=== PATIENT | male | born 1950 | race Caucasian/White ===

== ENCOUNTER 2020-11-04 02:05 | Inpatient (IN) | payer MEDICARE, OTHER ==
[~2020-11-04] VITALS: Ht 177.8 cm; Wt 79.8 kg
--- NOTE | 2020-11-04 02:10 | NUR ---
Pt bibra c/o sob and cp x1day. Pt breathing evenly and unlabored. Pt states his chest pain is "stabbing and doesnt go anywhere". Pt attached to monitor and pox. Emt at bedside for ekg. Pt given blanket and call light within reach
--- NOTE | 2020-11-04 03:08 | NUR ---
PATIENT'S BLOOD COLLECTED AND SENT TO THE LAB
[2020-11-04 03:33] LABS: BASOPHILS # (AUTO) 0.1 /CMM (0.0-0.2); BASOPHILS % (AUTO) 0.8 % (0.0-2.0); EOSINOPHILS % (AUTO) 1.6 % (0.0-6.0); HEMATOCRIT 38 % (39-51); HEMOGLOBIN 12.4 g/dL (13.5-17.5); LYMPHOCYTES # (AUTO) 2.3 /CMM (0.8-4.8); LYMPHOCYTES % (AUTO) 24.9 % (20.0-44.0); MEAN CORPUSCULAR HGB CONC 32 g/dl (31.0-36.0); MEAN CORPUSCULAR VOLUME 91 fL (80-96); MONOCYTES # (AUTO) 0.7 /CMM (0.1-1.30); MONOCYTES % (AUTO) 7.6 % (2.0-12.0); NEUTROPHILS # (AUTO) 6.1 /CMM (1.8-8.9); NEUTROPHILS % (AUTO) 65.1 % (43.0-81.0); PLATELET COUNT (AUTO) 277 /CMM (150-450); RED BLOOD CELL COUNT(AUTO) 4.19 MIL/uL (4.5-6.0); WHITE BLOOD COUNT (AUTO) 9.3 K/uL (4.3-11.0)
--- NOTE | 2020-11-04 03:49 | NUR ---
xray at bedside
[2020-11-04 04:08] LABS: D-DIMER 0.66 mg/L(FEU (0.17-0.50)
[2020-11-04 04:11] LABS: CALCIUM, SERUM 9.1 mg/dL (8.5-10.1); CREATININE 1.4 mg/dL (0.6-1.3); POTASSIUM 5.2 mmol/L (3.5-5.1)
--- NOTE | 2020-11-04 04:20 | NUR ---
per lab trop 5.238
[2020-11-04] MEDS ORDERED: ASPIRIN 325 MG TABLET ONE (04:24)
[2020-11-04 04:25] LABS: ALBUMIN 3.4 g/dL (3.4-5.0); BILIRUBIN,DIRECT 0.1 mg/dL (0.0-0.2); BILIRUBIN,TOTAL 0.4 mg/dL (0.2-1.0)
[2020-11-04] MEDS ORDERED: NITROGLYCERIN 0.4 MG/TAB BOTTLE SL ONE (04:30)
[2020-11-04] MEDS ORDERED: ASPIRIN 325 MG TABLET PO ONE (04:30)
--- NOTE | 2020-11-04 04:30 | NUR ---
nitrostat 0.4mg held. BP 97/49
[2020-11-04] MEDS ORDERED: HEPARIN INFUSION/D5W 500 ML IV ONE ×2 (04:36→05:00)
[2020-11-04] MEDS ORDERED: NITROGLYCERIN 0.4 MG/TAB BOTTLE ONE (04:37)
--- NOTE | 2020-11-04 04:50 | NUR ---
WARD () CONTACT INFORMATION: [phone]
[2020-11-04] MEDS ORDERED: HEPARIN SODIUM, PORCINE 5000 UNITS/1 ML VIAL ONE (04:55)
[2020-11-04] MEDS ORDERED: OLANZAPINE 10 MG VIAL IM ONE (05:00)
--- NOTE | 2020-11-04 05:15 | NUR ---
Heprin infusion started. Running at 1200units/hr. PTT redraw at 1115
--- NOTE | 2020-11-04 05:25 | NUR ---
Eliz () called and informed us that pt roll plugger machine operator is David Wallis at [address] [facility] [id number]
--- NOTE | 2020-11-04 05:27 | NUR ---
Eliz cell phone [phone]
--- NOTE | 2020-11-04 05:30 | NUR ---
RETURNED FROM CT
--- NOTE | 2020-11-04 05:40 | NUR ---
COVID SWABS SENT TO LAB
--- NOTE | 2020-11-04 07:15 | NUR ---
gave report to RICA Fenton for daniel
[2020-11-04] MEDS ORDERED: MAG HYDROX/AL HYDROX/SIMETH 30 ML UDC PO PRN (07:30)
[2020-11-04] MEDS ORDERED: ONDANSETRON HCL/PF 4 MG/2 ML VIAL IVP PRN (07:30)
[2020-11-04] MEDS ORDERED: ACETAMINOPHEN 325 MG TABLET PO PRN ×2 (07:30→08:30)
[2020-11-04] MEDS ORDERED: HEPARIN INFUSION/D5W 500 ML IV PRN (07:30)
[2020-11-04] MEDS ORDERED: NITROGLYCERIN 0.4 MG/TAB BOTTLE SL PRN (07:30)
--- NOTE | 2020-11-04 08:09 | NUR ---
received a call from the lab regarding covid result "negative".
[2020-11-04] MEDS ORDERED: ATOR40TA PO (08:13)
[2020-11-04] MEDS ORDERED: ASCO-352 PO (08:13)
[2020-11-04] MEDS ORDERED: CLOP75TA15 PO (08:13)
[2020-11-04] MEDS ORDERED: BUPR-54 PO (08:13)
[2020-11-04] MEDS ORDERED: ACET-868 PO (08:13)
[2020-11-04] MEDS ORDERED: MAGN400O6 PO (08:13)
[2020-11-04] MEDS ORDERED: ASPI-1420 PO (08:13)
[2020-11-04] MEDS ORDERED: CHOL100062 PO (08:13)
[2020-11-04] MEDS ORDERED: BISA10SU11 RC (08:13)
[2020-11-04] MEDS ORDERED: SITA50TA PO (08:13)
[2020-11-04] MEDS ORDERED: CARV3.122 PO (08:13)
[2020-11-04] MEDS ORDERED: METF-440 PO (08:13)
[2020-11-04] MEDS ORDERED: ZINC1CAP3 PO (08:13)
[2020-11-04] MEDS ORDERED: QUET25TA PO (08:13)
[2020-11-04] MEDS ORDERED: LISI2.5T2 PO (08:13)
[2020-11-04] MEDS ORDERED: GLUC1KIT IM (08:13)
[2020-11-04] MEDS ORDERED: PSYL3.4P6 PO (08:13)
[2020-11-04] MEDS ORDERED: INSU100V3 SQ (08:13)
[2020-11-04] MEDS ORDERED: MULT-24 PO (08:13)
[2020-11-04] MEDS ORDERED: DOCU250C14 PO (08:13)
[2020-11-04] MEDS ORDERED: PANT40TA2 PO (08:13)
[2020-11-04] MEDS ORDERED: DIVA125C2 PO (08:13)
--- NOTE | 2020-11-04 08:17 | NUR ---
PATIENT PULLED OUT PERIPHERAL IV LINE. RE-INSERTED ANOTHER LINE ON RIGHT HAND G20 IV.
--- NOTE | 2020-11-04 08:26 | NUR ---
BED 101 TELE
[2020-11-04] MEDS ORDERED: PANTOPRAZOLE 40 MG TABLET.DR PO SCH (08:30)
[2020-11-04] MEDS ORDERED: BISACODYL SUPP (10 MG) 10 MG/SUPP.RECT SUPP.RECT RC PRN (08:30)
[2020-11-04] MEDS ORDERED: FUROSEMIDE 20 MG/2 ML VIAL IV ONE (08:30)
[2020-11-04] MEDS ORDERED: MAGNESIUM HYDROXIDE 30 ML UDC PO PRN (08:30)
--- NOTE | 2020-11-04 08:56 | NUR ---
HEPARIN STOPPED AT THIS TIME
--- NOTE | 2020-11-04 08:56 | NUR ---
REPORT GIVEN TO SOON RN FOR SOHAIL.
[2020-11-04] MEDS: LISINOPRIL (5MG) 5 MG TABLET PO SCH (09:00)
[2020-11-04] MEDS: CARVEDILOL 3.125 MG TABLET PO SCH ×2 (09:00→17:00)
--- NOTE | 2020-11-04 09:00 | NUR ---
DR. BRIONES AT BEDSIDE FOR EVAL.
--- NOTE | 2020-11-04 09:20 | NUR ---
RN NOTE PT TRANSFERRED TO ROOM 101, STABLE CONDITION. BEDSIDE REPORT GIVEN FROM ER NURSE. PT A/Ox1-2. PT BREATHING RA SPO2 99%. PT HAS RT HAND IV ACCESS SL, FLUSHED, AND PATENT, NO SIGNS OF INFECTION/INFILTRATION. PT SKIN IS INTACT, BLE SCABS NOTED, BILAT FEET ARE DRY, NO ULCERS NOTED. PT STATES CHEST PAIN 11/22, WILL ADMIN MEDS ORDERED. ALL PT SAFETY PRECAUTIONS IN PLACE. WILL CONT TO MONITOR Addendum: 11/04/20 at 1001 by JOHN PHAM RN 0930 VITALS: BP 95/66, HR 89, RR 22, SPO2 99%, RR 22
--- NOTE | 2020-11-04 09:22 | NUR ---
PATIENT TRANSFERRED TO ROOM 101 VIA ACLS PROTOCOL. PATIENT A/OX3, BREATHING EVEN AND UNLABORED, ENDORSED TO BOB, GAVE BEDSIDE REPORT.
[2020-11-04 10:00] VITALS: BP 95/66
[2020-11-04 10:01] VITALS: BP 95/66
[2020-11-04] MEDS: CHOLECALCIFEROL 1,000 UNIT TABLET (VIT D3) PO SCH (10:35)
[2020-11-04] MEDS: ZINC SULFATE 220 MG CAPSULE PO SCH (10:35)
[2020-11-04] MEDS: BUPROPION XL 150 MG TAB.ER.24 PO SCH (10:36)
[2020-11-04] MEDS: DOCUSATE SODIUM 250 MG CAPSULE PO SCH (10:36)
[2020-11-04] MEDS: ASPIRIN EC 81 MG TABLET.DR PO SCH (10:36)
[2020-11-04] MEDS: LINAGLIPTIN 5 MG TABLET PO SCH (10:36)
[2020-11-04] MEDS: DIVALPROEX SODIUM 125 MG CAP.SPRINK PO SCH ×3 (10:36→16:23)
[2020-11-04] MEDS: MULTIVITAMINS,THERAGRAN 1 UDTAB TABLET PO SCH (10:37)
[2020-11-04] MEDS: ASCORBIC ACID 500 MG TABLET PO SCH (10:37)
[2020-11-04] MEDS: PSYLLIUM SEED 1 PKT PACKET PO SCH ×2 (10:38→17:00)
[2020-11-04] MEDS: CLOPIDOGREL BISULFATE 75 MG TABLET PO SCH (10:38)
[2020-11-04] MEDS: PANTOPRAZOLE 40 MG TABLET.DR PO SCH (10:38)
[2020-11-04] MEDS: ENOXAPARIN SODIUM 80 MG/0.8 ML DISP.SYRIN SQ SCH ×2 (10:39→21:03)
--- NOTE | 2020-11-04 10:45 | NUR ---
RN NOTE DR BRIONES AWARE OF PT CHEST PAIN 09/22, PT HAS LOW BP, NOT TO GIVE NITRO FOR THE TIME BEING. WILL CONT TO MONITOR PT
--- NOTE | 2020-11-04 10:49 | NUR ---
RN NOTE PER DR BRIONES AND DR BECK, OK TO HOLD LISINOPRIL AND CARVEDILOL, PT BP 95/66, HR IN 80s
[2020-11-04 12:00] VITALS: BP 121/75
[2020-11-04] MEDS ORDERED: DEXTROSE 50%-WATER 50 ML DISP.SYRIN IV PRN (12:30)
[2020-11-04] MEDS: BLOOD SUGAR DIAGNOSTIC 1 EACH STRIP IN SCH ×3 (12:44→21:15)
[2020-11-04 16:00] VITALS: BP 98/68
[2020-11-04] MEDS: INSULIN REGULAR, HUMAN 100 UNIT/ML 3 ML VIAL SQ PRN ×2 (18:08→21:16)
--- NOTE | 2020-11-04 19:10 | NUR ---
RN CLOSING NOTE PT RESTING COMFORTABLY, NO COMPLAINTS OF CHEST PAIN, MAALOX GIVEN EARLIER FOR HEARTBURN. PT ON NC 2L SPO2 96%, NO SIGNS OF RESP DISTRESS OR SOB. MONITOR TROP IN AM. ALL PT SAFETY PRECAUTIONS IN PLACE, SOHAIL ENDORSED TO RESIDENTIAL ASSISTANT RN
--- NOTE | 2020-11-04 19:34 | NUR ---
KILN FEEDER NOTES PT RECEIVED ALERT ORIENTED X1-2 PT IN BED RESTING COMFORTABLY ON 2L VIA NASAL CANNULA TOLERATING WELL. IV ACCESS ONT HE RIGHT HAND 20 G SALINE LOCKED PATENT FLUSHING WELL. NO SWELLING OR REDNESS NOTED AT SITE. NO RESPIRATORY DISTRESS NO PAIN OR DISCOMFORT NOTED OR REPORTED AT THIS TIME SAFETY PRECAUTIONS FOLLOWED AT ALL TIMES. CALL LIGHT WITHIN REACH. WILL CONTINUE TO MONITOR.
[2020-11-04 20:00] VITALS: BP 116/78
[2020-11-04] MEDS: QUETIAPINE FUMARATE 25 MG TABLET PO SCH (21:02)
[2020-11-04] MEDS: ATORVASTATIN 40 MG TABLET PO SCH (21:02)
--- NOTE | 2020-11-04 22:45 | NUR ---
EMERGENCY MAN NOTES PT CALLED TO RECEIVE INFORMATION ABOUT PT NURSE IN ROOM WITH PT ONCE AVAILABLE TRIED CALLING BACK DID NOT [employer] PUMP TENDER CALL LEFT A MESSAGE WILL TRY TO CALL BACK AGAIN LATER.
[2020-11-05 00:34] VITALS: BP 107/73
[2020-11-05 04:20] VITALS: BP 104/75
[2020-11-05 06:10] LABS: BASOPHILS # (AUTO) 0.1 /CMM (0.0-0.2); BASOPHILS % (AUTO) 0.7 % (0.0-2.0); EOSINOPHILS % (AUTO) 0.6 % (0.0-6.0); HEMATOCRIT 38 % (39-51); HEMOGLOBIN 12.6 g/dL (13.5-17.5); LYMPHOCYTES # (AUTO) 2.1 /CMM (0.8-4.8); LYMPHOCYTES % (AUTO) 24.9 % (20.0-44.0); MEAN CORPUSCULAR HGB CONC 33 g/dl (31.0-36.0); MEAN CORPUSCULAR VOLUME 90 fL (80-96); MONOCYTES # (AUTO) 0.7 /CMM (0.1-1.30); MONOCYTES % (AUTO) 8.9 % (2.0-12.0); NEUTROPHILS # (AUTO) 5.3 /CMM (1.8-8.9); NEUTROPHILS % (AUTO) 64.9 % (43.0-81.0); PLATELET COUNT (AUTO) 290 /CMM (150-450); RED BLOOD CELL COUNT(AUTO) 4.23 MIL/uL (4.5-6.0); WHITE BLOOD COUNT (AUTO) 8.2 K/uL (4.3-11.0)
--- NOTE | 2020-11-05 06:48 | NUR ---
ARTIST'S MODEL NOTES PT RECEIVED ALERT ORIENTED X1-2 PT IN BED RESTING COMFORTABLY ON 2L VIA NASAL CANNULA TOLERATING WELL. IV ACCESS ONT THE RIGHT HAND 20 G SALINE LOCKED PATENT FLUSHING WELL. NO SWELLING OR REDNESS NOTED AT SITE. NO RESPIRATORY DISTRESS NO PAIN OR DISCOMFORT NOTED OR REPORTED AT THIS TIME SAFETY PRECAUTIONS FOLLOWED AT ALL TIMES. ALL DUE MEDS GIVEN AND TOLERATED WELL.CALL LIGHT WITHIN REACH. WILL ENDORSE CARE TO DAYS SHIFT NURSE.
[2020-11-05 06:57] LABS: ALBUMIN 3.4 g/dL (3.4-5.0); BILIRUBIN,TOTAL 0.7 mg/dL (0.2-1.0); CALCIUM, SERUM 9.2 mg/dL (8.5-10.1); CREATININE 1.4 mg/dL (0.6-1.3); MAGNESIUM 2.1 mg/dL (1.8-2.4); PHOSPHORUS 4.5 mg/dL (2.5-4.9); POTASSIUM 4.6 mmol/L (3.5-5.1); TOTAL PROTEIN, SERUM 7.2 g/dL (6.4-8.2)
--- NOTE | 2020-11-05 07:06 | NUR ---
DIGITAL AD TRAFFICKER NOTES RECEIVED CRITICAL LAB RESULTS TROPONIN 3.195 TROPONIN TRENDING DOWN FROM PREVIOUS RESULTS. WILL INFORM MD and WILL ENDORSE TO DAY SHIFT NURSE
--- NOTE | 2020-11-05 07:10 | NUR ---
RN OPENING NOTES PT RECEIVED RESTING IN SEMI-FOWLERS POSITION. PATIENT A&OX1-2. PT ON O2 THERAPY VIA NC AT 2 LPM TOLERATING WELL. RIGHT HAND #20 G IV ACCESS INTACT AND PATENT. NO SWELLING OR REDNESS NOTED AT SITE. NO RESPIRATORY DISTRESS NO PAIN OR DISCOMFORT NOTED OR REPORTED AT THIS TIME. SAFETY PRECAUTIONS IMPLEMENTED, BED LOCKED IN LOWEST POSITION, SIDE RAILS UP X2, CALL LIGHT WITHIN REACH. WILL CONTINUE TO MONITOR AND PROVIDE CARE THROUGHOUT SHIFT.
[2020-11-05 08:00] VITALS: BP 127/84
[2020-11-05] MEDS: BLOOD SUGAR DIAGNOSTIC 1 EACH STRIP IN SCH ×4 (08:08→22:18)
[2020-11-05] MEDS: PANTOPRAZOLE 40 MG TABLET.DR PO SCH (08:24)
[2020-11-05] MEDS: DOCUSATE SODIUM 250 MG CAPSULE PO SCH (08:24)
[2020-11-05] MEDS: ASPIRIN EC 81 MG TABLET.DR PO SCH (08:24)
[2020-11-05] MEDS: DIVALPROEX SODIUM 125 MG CAP.SPRINK PO SCH ×3 (08:24→17:15)
[2020-11-05] MEDS: CLOPIDOGREL BISULFATE 75 MG TABLET PO SCH (08:25)
[2020-11-05] MEDS: LINAGLIPTIN 5 MG TABLET PO SCH (08:25)
[2020-11-05] MEDS: PSYLLIUM SEED 1 PKT PACKET PO SCH ×2 (08:25→17:15)
[2020-11-05] MEDS: MULTIVITAMINS,THERAGRAN 1 UDTAB TABLET PO SCH (08:25)
[2020-11-05] MEDS: ASCORBIC ACID 500 MG TABLET PO SCH (08:26)
[2020-11-05] MEDS: CHOLECALCIFEROL 1,000 UNIT TABLET (VIT D3) PO SCH (08:27)
[2020-11-05] MEDS: ZINC SULFATE 220 MG CAPSULE PO SCH (08:40)
[2020-11-05] MEDS: BUPROPION XL 150 MG TAB.ER.24 PO SCH (08:40)
[2020-11-05] MEDS: ENOXAPARIN SODIUM 80 MG/0.8 ML DISP.SYRIN SQ SCH ×2 (08:42→22:19)
[2020-11-05] MEDS: INSULIN REGULAR, HUMAN 100 UNIT/ML 3 ML VIAL SQ PRN ×3 (08:47→22:24)
[2020-11-05] MEDS: CARVEDILOL 3.125 MG TABLET PO SCH ×2 (08:47→17:00)
[2020-11-05] MEDS: LISINOPRIL (5MG) 5 MG TABLET PO SCH (08:48)
--- NOTE | 2020-11-05 11:00 | NUR ---
PT IN THE BATHROOM. WILL CHECK BACK LATER.
[2020-11-05 12:00] VITALS: BP 83/62
[2020-11-05 16:00] VITALS: BP 92/50
--- NOTE | 2020-11-05 19:43 | NUR ---
RN OPENING NOTES PT RESTING IN SEMI-FOWLERS POSITION. PATIENT A&OX1-2. PT ON O2 THERAPY VIA NC AT 2 LPM TOLERATING WELL. RIGHT HAND #20 G IV ACCESS INTACT AND PATENT. NO SWELLING OR REDNESS NOTED AT SITE. NO RESPIRATORY DISTRESS NO PAIN OR DISCOMFORT NOTED OR REPORTED AT THIS TIME. SAFETY PRECAUTIONS IMPLEMENTED, BED LOCKED IN LOWEST POSITION, SIDE RAILS UP X2, CALL LIGHT WITHIN REACH. WILL ENDORSE CARE TO UPCOMING SHIFT.
--- NOTE | 2020-11-05 19:45 | NUR ---
RN NOTE RECEIVED PT IN BED SLEEPING, AROUSES EASILY. VERBALLY RESPONSIVE. ON O2 THERAPY AT 2L VIA NC. NO DISTRESS NOTED. PT DENIES ANY SOB. DENIES PAIN AT THIS TIME. SR WITH 1ST DEGREE AV BLOCK ON TELE MONITOR. IV ON R HAND PATENT AND INTACT. WILL CONTINUE TO MONITOR. ALL SAFETY MEASURES IMPLEMENTED PER PROTOCOL. CALL LIGHT WITHIN REACH.
[2020-11-05 20:00] VITALS: BP 89/52
[2020-11-05] MEDS: QUETIAPINE FUMARATE 25 MG TABLET PO SCH (22:18)
[2020-11-05] MEDS: ATORVASTATIN 40 MG TABLET PO SCH (22:18)
[2020-11-06] VITALS: BP 90/70
--- NOTE | 2020-11-06 01:20 | NUR ---
RN NOTE PT COMPLAINED OF ON AND OFF CHEST DISCOMFORT, LASTING SECONDS TO A MINUTE. DENIES ANY RADIATING PAIN. UNABLE TO DESCRIBE PAIN. BP 107/53. P 89. DENIES SOB. NO NITROGLYCERIN GIVEN PTS BP LOW AND PAIN GOES AWAY IN A MINUTE. WILL CONTINUE TO MONITOR.
[2020-11-06 04:00] VITALS: BP 107/77
[2020-11-06 06:41] LABS: BASOPHILS % (AUTO) 0.5 % (0.0-2.0); EOSINOPHILS % (AUTO) 0.4 % (0.0-6.0); HEMATOCRIT 38 % (39-51); HEMOGLOBIN 12.4 g/dL (13.5-17.5); LYMPHOCYTES # (AUTO) 2.1 /CMM (0.8-4.8); LYMPHOCYTES % (AUTO) 25.4 % (20.0-44.0); MEAN CORPUSCULAR HGB CONC 33 g/dl (31.0-36.0); MEAN CORPUSCULAR VOLUME 90 fL (80-96); MONOCYTES # (AUTO) 1.1 /CMM (0.1-1.30); MONOCYTES % (AUTO) 13.1 % (2.0-12.0); NEUTROPHILS % (AUTO) 60.6 % (43.0-81.0); PLATELET COUNT (AUTO) 291 /CMM (150-450); RED BLOOD CELL COUNT(AUTO) 4.22 MIL/uL (4.5-6.0); WHITE BLOOD COUNT (AUTO) 8.2 K/uL (4.3-11.0)
[2020-11-06 06:55] LABS: ALBUMIN 3.5 g/dL (3.4-5.0); BILIRUBIN,TOTAL 0.7 mg/dL (0.2-1.0); CALCIUM, SERUM 8.7 mg/dL (8.5-10.1); CREATININE 1.5 mg/dL (0.6-1.3); MAGNESIUM 2.2 mg/dL (1.8-2.4); POTASSIUM 4.9 mmol/L (3.5-5.1)
--- NOTE | 2020-11-06 07:00 | NUR ---
RN NOTE PT VS STABLE. NO PAIN NO DISTRESS NOTED. ALL NEEDS ATTENDED. WILL ENDORSED TO NEXT SHIFT NURSE FOR SOHAIL
--- NOTE | 2020-11-06 07:30 | NUR ---
RN OPENING NOTES PATIENT PRESENT IN BED, A/OX2, ON NC ON 2L, TOLERATING WELL, SPO2 99%, SR WITH PVC ON TELE-MONITOR, IV LINE INTACT AND PATNT, FLUSHED, ABLE TO AMBULATE, URINAL AT BED SITE, CARDIC DIET NOTED, BED LOCKED IN LOWEST POSIITON, CALL LIGHT IN REACH, WILL CONT TO MONITOR
[2020-11-06 07:31] LABS: BILIRUBIN,URINE NEGATIVE (NEGATIVE); COLOR,URINE ORANGE (YELLOW); LEUKOCYTE ESTERASE ,URINE NEGATIVE (NEGATIVE); NITRITE, URINE NEGATIVE (NEGATIVE); PROTEIN,URINE TRACE mg/dl (NEGATIVE); UGLUCOSE NEGATIVE (NEGATIVE); UROBILINOGEN,URINE 0.2 EU/dL (0.2)
[2020-11-06 07:37] LABS: CREATININE, URINE 196.8 MG/DL (30.0-125.0)
[2020-11-06 07:49] LABS: BACTERIA,URINE Rare /HPF (None Seen); RBC,URINE F /HPF (0-2); SQUAMOUS EPITHELIAL CELL,UR Rare /HPF (None Seen); WBC,URINE F /HPF (0-3)
[2020-11-06 08:00] VITALS: BP 107/77
[2020-11-06] MEDS: BLOOD SUGAR DIAGNOSTIC 1 EACH STRIP IN SCH ×4 (08:17→21:42)
[2020-11-06 08:27] LABS: EOSINOPHIL,URINE None Seen
[2020-11-06] MEDS: DOCUSATE SODIUM 250 MG CAPSULE PO SCH (08:47)
[2020-11-06] MEDS: PANTOPRAZOLE 40 MG TABLET.DR PO SCH (08:47)
[2020-11-06] MEDS: MULTIVITAMINS,THERAGRAN 1 UDTAB TABLET PO SCH (08:47)
[2020-11-06] MEDS: BUPROPION XL 150 MG TAB.ER.24 PO SCH (08:47)
[2020-11-06] MEDS: CARVEDILOL 3.125 MG TABLET PO SCH ×2 (08:48→17:00)
[2020-11-06] MEDS: LISINOPRIL (5MG) 5 MG TABLET PO SCH (08:48)
[2020-11-06] MEDS: DIVALPROEX SODIUM 125 MG CAP.SPRINK PO SCH ×3 (08:49→17:08)
[2020-11-06] MEDS: ASCORBIC ACID 500 MG TABLET PO SCH (08:49)
[2020-11-06] MEDS: CLOPIDOGREL BISULFATE 75 MG TABLET PO SCH (08:49)
[2020-11-06] MEDS: ASPIRIN EC 81 MG TABLET.DR PO SCH (08:49)
[2020-11-06] MEDS: ZINC SULFATE 220 MG CAPSULE PO SCH (08:49)
[2020-11-06] MEDS: LINAGLIPTIN 5 MG TABLET PO SCH (08:49)
[2020-11-06] MEDS: CHOLECALCIFEROL 1,000 UNIT TABLET (VIT D3) PO SCH (08:49)
[2020-11-06] MEDS: PSYLLIUM SEED 1 PKT PACKET PO SCH ×2 (08:50→17:08)
[2020-11-06] MEDS: INSULIN REGULAR, HUMAN 100 UNIT/ML 3 ML VIAL SQ PRN ×3 (08:54→18:08)
[2020-11-06] MEDS: FUROSEMIDE 40 MG TABLET PO SCH (13:48)
[2020-11-06 16:00] VITALS: BP 90/53
--- NOTE | 2020-11-06 18:40 | NUR ---
RN CLOSING NOTES PATIENT REMAINS IN A ROOM, COOPERATIVE BEHAVIOR, DENIES PAIN OR DISCOMFORT, MEDICATIONS GIVEN, COMPLAINED WITH TREATMENT AND VERBALIZED UNDERSTANDING, HOWEVER POOR FOOD INTAKE DURING DAY, ASKED MULTIPLE TIMES ABOUT FOOD PREFERENCES, PATENT JUST STATED " I AM NOT HUNGRY" , SAFETY MEASURES IMPLEMENTED, WILL ENDORSE TO PM SHIFT RN FOR SOHAIL
[2020-11-06 20:00] VITALS: BP 101/74
--- NOTE | 2020-11-06 20:00 | NUR ---
MS RN NOTE PT IN BED AWAKE. A/O X 1-2, CONFUSED AT TIMES. NO DISTRESS OR DISCOMFORT NOTED. NO SOB NOTED. DENIES PAIN. ON O2 2L VIA NC O2 SAT 96%. ALL NEEDS ATTENDED. SIDE RAILS UP X 2 AND CALL LIGHT WITHIN REACH. VSS. CONTINUE TO MONITOR HIM.
[2020-11-06] MEDS: QUETIAPINE FUMARATE 25 MG TABLET PO SCH (21:42)
[2020-11-07 04:00] VITALS: BP 94/59
[2020-11-07 06:03] LABS: BASOPHILS % (AUTO) 0.4 % (0.0-2.0); HEMATOCRIT 37 % (39-51); HEMOGLOBIN 12.1 g/dL (13.5-17.5); LYMPHOCYTES # (AUTO) 2.1 /CMM (0.8-4.8); LYMPHOCYTES % (AUTO) 23.3 % (20.0-44.0); MEAN CORPUSCULAR HGB CONC 33 g/dl (31.0-36.0); MEAN CORPUSCULAR VOLUME 90 fL (80-96); MONOCYTES # (AUTO) 1.2 /CMM (0.1-1.30); MONOCYTES % (AUTO) 12.9 % (2.0-12.0); NEUTROPHILS # (AUTO) 5.7 /CMM (1.8-8.9); NEUTROPHILS % (AUTO) 62.4 % (43.0-81.0); PLATELET COUNT (AUTO) 240 /CMM (150-450); RED BLOOD CELL COUNT(AUTO) 4.08 MIL/uL (4.5-6.0); WHITE BLOOD COUNT (AUTO) 9.2 K/uL (4.3-11.0)
[2020-11-07 06:05] LABS: ALBUMIN 3.2 g/dL (3.4-5.0); BILIRUBIN,TOTAL 0.6 mg/dL (0.2-1.0); CALCIUM, SERUM 8.6 mg/dL (8.5-10.1); CREATININE 1.4 mg/dL (0.6-1.3); MAGNESIUM 2.2 mg/dL (1.8-2.4); PHOSPHORUS 4.5 mg/dL (2.5-4.9); POTASSIUM 4.7 mmol/L (3.5-5.1); TOTAL PROTEIN, SERUM 6.6 g/dL (6.4-8.2)
--- NOTE | 2020-11-07 06:29 | NUR ---
MS RN NOTE PT IN BED ASLEEP, AROUSABLE. NO DISTSRESS OR DISCOMFORT NOTED. NO S/S OF PAIN NOTED. SL RT HAND #20 G INTACT AND PATENT. SIDE RAILS UP X 2 AND CALL LIGHT WITHIN REACH. VSS. WILL ENDORSE TO DAY SHIFT NURSE FOR CONTINUE TO CARE.
[2020-11-07 07:07] LABS: PTH, INTACT 66 pg/mL (15-65)
[2020-11-07] MEDS: PANTOPRAZOLE 40 MG TABLET.DR PO SCH (07:30)
--- NOTE | 2020-11-07 07:30 | NUR ---
RN OPENING NOTES PATIENT PRESENT IN BED, A/OX1, ON NC ON 2L, TOLERATING WELL, SPO2 99%, MED SURG STATUS ; IV LINE AND PATENT, FLUSHED, ABLE TO AMBULATE, URINAL AT BED SITE, CARDIAC DIET NOTED, BED LOCKED IN LOWEST POSITION, CALL LIGHT IN REACH, WILL CONT TO MONITOR
[2020-11-07] MEDS: BLOOD SUGAR DIAGNOSTIC 1 EACH STRIP IN SCH ×2 (07:39→12:13)
[2020-11-07] MEDS: INSULIN REGULAR, HUMAN 100 UNIT/ML 3 ML VIAL SQ PRN ×3 (07:45→12:25)
[2020-11-07 08:00] VITALS: BP 89/61
[2020-11-07 09:00] VITALS: BP 89/61
[2020-11-07] MEDS: CARVEDILOL 3.125 MG TABLET PO SCH (09:00)
[2020-11-07] MEDS: LISINOPRIL (5MG) 5 MG TABLET PO SCH (09:00)
[2020-11-07] MEDS: MULTIVITAMINS,THERAGRAN 1 UDTAB TABLET PO SCH (09:16)
[2020-11-07] MEDS: CHOLECALCIFEROL 1,000 UNIT TABLET (VIT D3) PO SCH (09:16)
[2020-11-07] MEDS: ASCORBIC ACID 500 MG TABLET PO SCH (09:16)
[2020-11-07] MEDS: ZINC SULFATE 220 MG CAPSULE PO SCH (09:16)
[2020-11-07] MEDS: PSYLLIUM SEED 1 PKT PACKET PO SCH (09:16)
[2020-11-07] MEDS: LINAGLIPTIN 5 MG TABLET PO SCH (09:17)
[2020-11-07] MEDS: BUPROPION XL 150 MG TAB.ER.24 PO SCH (09:17)
[2020-11-07] MEDS: DOCUSATE SODIUM 250 MG CAPSULE PO SCH (09:17)
[2020-11-07] MEDS: FUROSEMIDE 40 MG TABLET PO SCH (09:17)
[2020-11-07] MEDS: CLOPIDOGREL BISULFATE 75 MG TABLET PO SCH (09:17)
[2020-11-07] MEDS: DIVALPROEX SODIUM 125 MG CAP.SPRINK PO SCH ×2 (09:17→13:16)
[2020-11-07] MEDS: ASPIRIN EC 81 MG TABLET.DR PO SCH (09:17)
[2020-11-07] MEDS ORDERED: GLUCERNA SHAKE 237 ML CAN PO SCH (09:30)
[2020-11-07] MEDS ORDERED: NUT.237L45 PO (10:46)
[2020-11-07] MEDS ORDERED: PANT40TA2 PO (10:46)
[2020-11-07] MEDS ORDERED: Nitroglycerin SL (10:46)
[2020-11-07] MEDS ORDERED: FURO40TA5 PO (10:46)
--- NOTE | 2020-11-07 13:37 | NUR ---
RN OPENING NOTES PATIENT PRESENT IN BED, A/OX1, ON NC ON 2L, TOLERATING WELL, SPO2 99%, MED SURG STATUS ; IV LINE AND PATENT, FLUSHED, ABLE TO AMBULATE, URINAL AT BED SITE, CARDIAC DIET NOTED, BED LOCKED IN LOWEST POSITION, CALL LIGHT IN REACH, WILL CONT TO MONITOR Addendum: 11/07/20 at 1338 by Francy Leal RN WRONG TIME
--- NOTE | 2020-11-07 13:38 | NUR ---
REPORT GIVEN TO BUDDY STRAUSS AT [facility], PATIENT CLEAN, DRESSES IN CLEAN GOWN, DISCHARGE PAPERWORK PROVIDED, AWAITING FOR AMBULANCE
--- NOTE | 2020-11-07 14:30 | NUR ---
discharge notes Ambulance at bed site ([facility], unit#[id number]), Patient name confirmed, destination confirmed, report given, DC paperwork provided, ID band and IV removed
[2020-11-08 05:07] LABS: *SPE A/G RATIO 1.2 (0.7-1.7); *SPE ALBUMIN 3.6 g/dL (2.9-4.4); *SPE ALPHA-1-GLOBULIN 0.2 g/dL (0.0-0.4); *SPE ALPHA-2-GLOBULIN 0.7 g/dL (0.4-1.0); *SPE BETA GLOBULIN 0.8 g/dL (0.7-1.3); *SPE GLOBULIN, TOTAL 2.9 g/dL (2.2-3.9); *SPE M-SPIKE Not Observed g/dL (Not Observed); *SPEGAMMA GLOBULIN 1.2 g/dL (0.4-1.8)
== END 2020-11-07 16:23 | DRG 280 ==
LOC: ER 02:07 → TRANSITION 07:20 → TELE-TD 08:24 → TELE1 15:01 → MEDSG1 11-06 08:37
PROVIDERS: ADMIT Family Medicine; ATTEND Nurse Practitioner Acute Care
DX: I21.A1 Myocardial infarction type 2 (principal); N17.0 Acute kidney failure with tubular necrosis; I50.22 Chronic systolic (congestive) heart failure; I13.0 Hypertensive heart and chronic kidney disease with heart failure and stage 1 through stage 4 chronic kidney disease, or unspecified chronic kidney disease; E87.1 Hypo-osmolality and hyponatremia; I42.9 Cardiomyopathy, unspecified; J90 Pleural effusion, not elsewhere classified; E11.65 Type 2 diabetes mellitus with hyperglycemia; E11.22 Type 2 diabetes mellitus with diabetic chronic kidney disease; N18.9 Chronic kidney disease, unspecified; Z20.822 Contact with and (suspected) exposure to COVID-19; J44.9 Chronic obstructive pulmonary disease, unspecified; Z90.49 Acquired absence of other specified parts of digestive tract; Z98.890 Other specified postprocedural states; E87.5 Hyperkalemia; Z83.3 Family history of diabetes mellitus; Z82.3 Family history of stroke; Z95.810 Presence of automatic (implantable) cardiac defibrillator; Z87.891 Personal history of nicotine dependence; E78.5 Hyperlipidemia, unspecified; Z82.49 Family history of ischemic heart disease and other diseases of the circulatory system; Z79.02 Long term (current) use of antithrombotics/antiplatelets; Z79.899 Other long term (current) drug therapy; Z79.4 Long term (current) use of insulin; Z79.82 Long term (current) use of aspirin; D63.8 Anemia in other chronic diseases classified elsewhere; D50.9 Iron deficiency anemia, unspecified; R91.8 Other nonspecific abnormal finding of lung field; E86.9 Volume depletion, unspecified
CPT/HCPCS: 36415; 71045-TC; 76705-TC; 76770-TC; 80048-TC; 80053-TC; 80061-TC; 80076-TC; 81001; 82550-TC; 82570-TC; 82962-TC; 83735-TC; 83970; 84100-TC; 84155; 84155-TC; 84165; 84300-TC; 84484-TC; 85025-TC; 85378-TC; 85730-TC; 87081-TC; 93307-TC; G0378; J1644; J1650; J1815; J1940; J2405; U0003

== ENCOUNTER 2020-11-08 13:10 | Emergency (ER) | payer MEDICARE, OTHER ==
[~2020-11-08] VITALS: Ht 175.3 cm; Wt 82.1 kg
[~2020-11-08 13:10] MED LIST: ACET-868 PO; ASCO-352 PO; ASPI-1420 PO; BISA10SU11 RC; BUPR-54 PO; CARV3.122 PO; CHOL100062 PO; CLOP75TA15 PO; DIVA125C2 PO; DOCU250C14 PO; FURO40TA5 PO; GLUC1KIT IM; INSU100V3 SQ; LISI2.5T2 PO; MAGN400O6 PO; MULT-24 PO; NUT.237L45 PO; Nitroglycerin SL; PANT40TA2 PO; PSYL3.4P6 PO; QUET25TA PO; SITA50TA PO; ZINC1CAP3 PO
[2020-11-08] MEDS ORDERED: ASPIRIN 325 MG TABLET PO ONE (13:30)
[2020-11-08 13:40] LABS: BASOPHILS # (AUTO) 0.1 /CMM (0.0-0.2); BASOPHILS % (AUTO) 0.6 % (0.0-2.0); EOSINOPHILS % (AUTO) 0.2 % (0.0-6.0); HEMATOCRIT 39 % (39-51); HEMOGLOBIN 12.5 g/dL (13.5-17.5); LYMPHOCYTES # (AUTO) 1.5 /CMM (0.8-4.8); MEAN CORPUSCULAR HGB CONC 32 g/dl (31.0-36.0); MEAN CORPUSCULAR VOLUME 91 fL (80-96); MONOCYTES # (AUTO) 1.2 /CMM (0.1-1.30); NEUTROPHILS # (AUTO) 5.5 /CMM (1.8-8.9); NEUTROPHILS % (AUTO) 66.2 % (43.0-81.0); PLATELET COUNT (AUTO) 211 /CMM (150-450); RED BLOOD CELL COUNT(AUTO) 4.24 MIL/uL (4.5-6.0); WHITE BLOOD COUNT (AUTO) 8.3 K/uL (4.3-11.0)
--- NOTE | 2020-11-08 13:42 | NUR ---
BIBRA FROM SNF TO ER BED 7. LETHARGIC. ARROUSABLE. IN MOD RESP DISTRESS, TACHYPNEIC W/ RETRACTION SATTING @ 86% ON RA. PLACED ON O2 VIA NC @ 6LPM sATTING @ 96-98%. BROUGHT ON FOR CHEST PAIN THAT STARTED TODAY. 12/22 SHARP NON RADIATING ON HIS MID CHEST. PT WAS GIVEN 3 SPRAYS OF ON FIELD. PT NOTED HY[POTENSIVE UPON RECEIVINGSBP IN THE 80S. MD WAS AT THE BEDSIDE FOR EVAL. ORDERS RECEIVED, NOTED AND CARREID OUT. IV LINE ALREADY PRESENT ON R HAND 20G. PT ON MONITOPR AND EKG DONE AT BEDSIDE
[2020-11-08] MEDS ORDERED: ASPIRIN 325 MG TABLET ONE (13:51)
[2020-11-08 13:55] LABS: CALCIUM, SERUM 8.4 mg/dL (8.5-10.1); CREATININE 1.6 mg/dL (0.6-1.3); POTASSIUM 4.9 mmol/L (3.5-5.1)
--- NOTE | 2020-11-08 15:06 | NUR ---
CALLED [facility] FOR TRANSPORT TO [facility]. ETA 75-90 MINUTES.
--- NOTE | 2020-11-08 15:16 | NUR ---
REPOT GIVEN TO RICA LEDBETTER FOR SOHAIL AT THE [facility]
--- NOTE | 2020-11-08 16:18 | NUR ---
Patient discharged to home in stable condition. Written and verbal after care instructions given. Patient verbalizes understanding of instruction. IV removed. Catheter intact and site benign. Pressure and 4x4 applied to site. No bleeding noted.
--- NOTE | 2020-11-08 16:18 | NUR ---
APA 265 @ BEDSIDE FOR TRANSPROT BACK TO HIS FACILITY. REPORT GIVEN TO EMS
--- NOTE | 2020-11-08 16:45 | NUR ---
Note juan in EDM - 11/08/20 at 1700 by RIKY PT NOTED HYPOTENSIVE AFTER GIVING REPORT TO AMBULANCE EMT. PT'S BI NOW IS 87/60
--- NOTE | 2020-11-08 16:45 | NUR ---
PT NOTED HYPOTENSIVE AFTER GIVING REPORT TO AMBULANCE EMT. PT'S BI NOW IS 87/60. MD IS AWARE OF THE BP AND OK PT TO BE DISCHARGED.
--- NOTE | 2020-11-08 17:00 | NUR ---
PT LEFT ON GURNEY WITH 2 EMT FROM AMBULANCE. NAD NOTED.
[2020-11-08 18:54] VITALS: BP 87/60
== END 2020-11-08 17:00 | disposition home or self-care (01) ==
LOC: ER 13:16
DX: R07.89 Other chest pain (principal); I11.0 Hypertensive heart disease with heart failure; I50.9 Heart failure, unspecified; J44.9 Chronic obstructive pulmonary disease, unspecified; E11.9 Type 2 diabetes mellitus without complications; Z95.0 Presence of cardiac pacemaker; Z90.89 Acquired absence of other organs; Z98.890 Other specified postprocedural states; Z79.899 Other long term (current) drug therapy; Z79.4 Long term (current) use of insulin; Z79.82 Long term (current) use of aspirin
CPT/HCPCS: 36415; 71045-TC; 80048-TC; 83880; 84484-TC; 85025-TC